=== PATIENT | female | born 2005 | race Two or more races ===

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

== ENCOUNTER 2024-02-14 12:43 | Outpatient (CLI) | payer MEDICAID | END 2024-02-14 23:59 | disposition home or self-care (01) | LOC: RAD 12:43 | PROVIDERS: ATTEND Obstetrics & Gynecology | DX: Z34.02 Encounter for supervision of normal first pregnancy, second trimester (principal) | CPT/HCPCS: 76805; 76811 ==